=== PATIENT | female | born 1980 | race Caucasian/White ===

== ENCOUNTER 2022-09-19 15:30 | Emergency (ER) | payer OTHER ==
[2022-09-19 16:04] VITALS: BP 148/100; PULSE 67; RESP 20; TEMP 98; BMI 27.9
[2022-09-19] MEDS ORDERED: LOSARTAN 50MG/HCTZ 12.5MG 1 TAB PO ONE (17:46)
[2022-09-19] MEDS ORDERED: ASPIRIN 81 MG CHEWABLE TABLETS PO ONE (17:48)
[2022-09-19] MEDS ORDERED: ASPIRIN 325 MG TABLET ONE (18:26)
[2022-09-19] MEDS ORDERED: HYDROCHLOROTHIAZIDE 25 MG TABLET (FP) ONE (18:26)
[2022-09-19] MEDS ORDERED: LOSARTAN POTASSIUM 50 MG TABLET ONE (18:26)
[2022-09-19 18:36] LABS: BASO % 0.4 % (0-2.0); EOS % 0.6 % (0-4.5); HEMATOCRIT 39.7 % (32.4-45.2); HEMOGLOBIN 13.2 GM/dL (10.7-15.3); LYMPH % 25.4 % (8-40); MCH 33.3 pg (25.7-33.7); MCHC 33.3 g/dl (32.0-36.0); MEAN CELL VOLUME 99.9 fl (80-96); MEAN PLT VOLUME 7.7 fl (7.5-11.1); MONO % 4.7 % (3.8-10.2); NEUT % 68.9 % (42.8-82.8); PLATELET COUNT 390 10^3/uL (134-434); RBC 3.97 M/mm3 (3.60-5.2); RDW 12.9 % (11.6-15.6); WHITE BLOOD COUNT 8.4 K/mm3 (4.0-10.0)
[2022-09-19 18:52] LABS: CALCIUM 8.8 mg/dL (8.5-10.1)
[2022-09-19 18:53] LABS: ALBUMIN 3.8 g/dl (3.4-5.0); BLOOD UREA NITROGEN 9.6 mg/dL (7-18); MAGNESIUM 2.3 mg/dL (1.8-2.4)
[2022-09-19 18:56] LABS: CREATININE 0.8 mg/dL (0.55-1.3)
[2022-09-19 18:58] LABS: BILIRUBIN,TOTAL 0.2 mg/dL (0.2-1); TOT PROT 6.8 g/dl (6.4-8.2)
[2022-09-19 19:01] LABS: N-TERMINAL BNP 194.3 pg/ml (5-125)
== END 2022-09-19 19:31 | disposition home or self-care (01) ==
LOC: JER 15:30
DX: I10 Essential (primary) hypertension (principal)
CPT/HCPCS: 36415; 71046-TC-FY; 80053; 83735; 83880; 84484; 84703; 85025; 93005; 93010; 99285-25